=== PATIENT | male | born 1995 | race Caucasian/White ===

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

== ENCOUNTER 2022-10-26 10:43 | Emergency (ER) | payer BC ==
[2022-10-26] MEDS ORDERED: Iopamidol 612 MG/ML 500 ML Multipack Bottle IV ONE (11:26)
[2022-10-26] MEDS ORDERED: Sodium Chloride 0.9% 10 ML Syringe FLUSH ONE (11:26)
[2022-10-26] MEDS ORDERED: Sodium Chloride 0.9% 50 ML IV SCH (11:30)
[2022-10-26 13:16] VITALS: BP 122/72; PULSE 68
== END 2022-10-26 13:31 | disposition home or self-care (01) ==
LOC: JP.ED 10:43
DX: R10.31 Right lower quadrant pain (principal)
CPT/HCPCS: 74177; 99284; J3490; Q9967

== ENCOUNTER → 2022-11-27 | Day surgery (SDC) | payer BC ==
[~2022-11-27] MED LIST: Acetaminophen 500 MG Tab PO ONE; Acetaminophen/HYDROcodone 325-5 MG Tab PO ONE; Bupivacaine 0.5%/EPINEPHrine 1:200,000 50 ML MDV ONE; Dexamethasone 4 MG/ML SDV ONE; Glycopyrrolate 0.2 MG/ML 5 ML MDV ONE; Lactated Ringers 1,000 ML IV SCH; Neostigmine Methylsulfate 1 MG/ML 5 ML Syringe ONE; Ondansetron 4 MG/2 ML SDV ONE; Propofol 200 MG/20 ML SDV ONE; Rocuronium 50 MG/5 ML Vial ONE; ceFAZolin 2 GM in Premix Bag 1 BAG IV ONE; fentaNYL 100 MCG/2 ML SDV ONE; fentaNYL 250 MCG/5 ML SDV ONE
[2022-11-27 06:50] LABS: HEMATOCRIT 45.4 % (38.4-49.7); HEMOGLOBIN 15.4 g/dL (12.9-16.9); MEAN CORPUSCULAR HGB CONC 33.9 g/dL (31.6-35.5); MEAN CORPUSCULAR VOLUME 85.5 fL (81.4-99.0); RED BLOOD CELL COUNT 5.31 M/uL (4.14-5.76); WHITE BLOOD CELL COUNT,WBC 7.1 K/uL (3.2-11.0)
[2022-11-27 07:10] LABS: A/G RATIO 1.1 (1.2-2.2); ALANINE AMINOTRANSFERASE,ALT 52 U/L (12-78); ALBUMIN 3.6 g/dL (3.4-5.0); ALKALINE PHOSPHATASE 70 U/L (46-116); ANION GAP 8.4 mmol/L (5.0-14.0); ASPARTATE AMNIOTRANSFERASE,AST 23 U/L (15-37); BILIRUBIN TOTAL 0.8 mg/dL (0.2-1.0); BLOOD UREA NITROGEN,BUN 11 mg/dL (7-18); CALCIUM 8.8 mg/dL (8.5-10.1); CARBON DIOXIDE,CO2 28 mmol/L (21-32); CHLORIDE,CL 105 mmol/L (100-108); EST CRCL DRUG DOSING (CG) 112.92 mL/min; ESTIMATED GFR 107 mL/min (>60); GLUCOSE RANDOM 104 mg/dL (74-106); POTASSIUM,K 3.6 mmol/L (3.6-5.2); PROTEIN TOTAL,TP 6.8 g/dL (6.4-8.2); SODIUM,NA 141 mmol/L (140-148)
[2022-11-27 10:35] VITALS: BP 118/77; PULSE 56
== END ==
LOC: JP.SDS 05:58
PROVIDERS: ATTEND Student in an Organized Health Care Education/Training Program
DX: K40.90 Unilateral inguinal hernia, without obstruction or gangrene, not specified as recurrent (principal); F17.220 Nicotine dependence, chewing tobacco, uncomplicated
CPT/HCPCS: 36415; 49650; 80053; 85027; A9270; C1781; J1100; J2405; J2704; J2710; J3010; J3490; J7120